=== PATIENT | female | born 1965 | race Caucasian/White ===

== ENCOUNTER 2018-09-04 17:20 | Emergency (ER) | payer MEDICAID ==
[2018-09-04] MEDS: ACETAMINOPHEN 500 MG TAB PO (18:48)
== END 2018-09-04 21:09 | disposition home or self-care (01) ==
LOC: FTE 17:20
DX: S61.216A Laceration without foreign body of right little finger without damage to nail, initial encounter (principal); W23.1XXA Caught, crushed, jammed, or pinched between stationary objects, initial encounter; Y92.9 Unspecified place or not applicable
CPT/HCPCS: 73140; 99283-25